=== PATIENT | male | born 1975 | race Caucasian/White ===

== ENCOUNTER 2018-05-23 09:00 | Emergency (ER) | payer SELFPAY ==
[2018-05-23 09:29] VITALS: BP 136/90
--- NOTE | 2018-05-23 09:37 | EDM.PDOC ---
ED HPI GENERAL MEDICAL PROBLEM - General Chief Complaint: Upper Extremity Injury/Pain Stated Complaint: BROKEN RT POINTER FINGER Time Seen by Provider: 05/23/18 09:32 Source of Information: Reports: Patient, RN Notes Reviewed History Limitations: Reports: No Limitations - History of Present Illness INITIAL COMMENTS - FREE TEXT/NARRATIVE: 42-year-old gentleman presents to the emergency department today with complaint of trauma to his right pointer finger, he accidentally crushed this between a metal stake in a 10 pound slight July 2 days ago, he would like to have it checked out he does have a laceration over the proximal phalange he and his started to heal by second intention he has had this wound wrapped Right 2-Index finger Pain Score (Numeric/FACES): 8 - Related Data Allergies Allergy/AdvReac Type Severity Reaction Status Date / Time No Known Allergies Allergy Verified 05/23/18 09:23 Home Meds: Home Meds NK [No Known Home Meds] 05/23/18 [History] Past Medical History Musculoskeletal History: Reports: Fracture - Past Surgical History GI Surgical History: Reports: Appendectomy, Hernia Repair/Other Social & Family History - Family History Cardiac: Reports: [place] Other GI Family History: Colon cancer Neurological: Reports: CVA Oncologic: Reports: Colon - Tobacco Use Smoking Status *Q: Current Every Day Smoker Years of Tobacco use: 16 Packs/Tins Daily: 0.5 - Caffeine Use Caffeine Use: Reports: Coffee - Alcohol Use Days Per Week of Alcohol Use: 2 Number of Drinks Per Day: 6 Total Drinks Per Week: 12 - Recreational Drug Use Recreational Drug Use: Yes Drug Use in Last 12 Months: Yes Recreational Drug Type: Reports: Marijuana/Hashish Recreational Drug Use Frequency: Socially Review of Systems - Review of Systems Review Of Systems: See Below Musculoskeletal: Reports: Hand Pain Skin: Reports: Wound Neurological: Reports: No Symptoms ED EXAM, GENERAL - Physical Exam Exam: See Below Free Text/Narrative:: Examination of the right hand I do appreciate approximately 2 cm laceration appears to be superficial of the started to heal by second intention over the dorsal aspect of the phalange he proximal digit #2 he has edema appreciated in digit #2 there is limited range of motion but he can move all joints and all digits secondary to edema and pain ED TRAUMA EXTREMITY PROCEDURES - Splinting Right 2nd Digit Splint Site: Second digit middle phalanx Pre-Procedure NV Status: Normal Post-Procedure NV Status: Normal Splint Material: Aluminum-Foam Splint Design: Other (Finger) Applied & Form Fitted By: Nurse Provider Post-Splint Application NV Check: NV Status Normal, Good Position Complications: No Course - Vital Signs Last Recorded V/S: Last Vital Signs Temp 98.4 F 05/23/18 09:28 Pulse 90 05/23/18 09:28 Resp 14 05/23/18 09:28 BP 136/90 05/23/18 09:28 Pulse Ox 100 05/23/18 09:28 - Orders/Labs/Meds Orders: Active Orders 24 hr Category Date Time Status Fingers Second Digit Rt F6 [CR] Stat Exams 05/23/18 09:34 Taken Departure - Departure Time of Disposition: 10:16 Disposition: Home, Self-Care 01 Condition: Good Clinical Impression: Open fracture of middle phalanx of right index finger Qualifiers: Encounter type: initial encounter Fracture alignment: displaced Qualified Code( s): S62.620B - Displaced fracture of middle phalanx of right index finger, initial encounter for open fracture - Discharge Information Referrals: PCP,None [Primary Care Provider] - Forms: ED Department Discharge Additional Instructions: Please follow-up with orthopedics tomorrow - My Orders Last 24 Hours: My Active Orders 05/23/18 09:34 Fingers Second Digit Rt F6 [CR] Stat - Assessment/Plan Last 24 Hours: My Active Orders 05/23/18 09:34 Fingers Second Digit Rt F6 [CR] Stat Plan: Assessment Acuity = acute Site and laterality = fracture right index middle phalange open Etiology = secondary trauma Manifestations = none Location of injury = Home Lab values = x-ray describes fracture above Plan Tetanus was updated today, given 2 g Ancef 1, prescription written for Keflex 500 mg by mouth 3 times a day 7 days, set up to see orthopedics tomorrow This note was dictated using [employer] voice recognition software please call with any questions on syntax or grammar.
[2018-05-23] MEDS ORDERED: ceFAZolin 1 GM Vial IM ONE (10:13)
[2018-05-23] MEDS ORDERED: Diphtheria,Pertussis(Acell),Tetanus Vaccine 0.5 ML SDV IM ONE (10:13)
--- NOTE | 2018-05-24 09:22 | CR ---
Fingers Second Digit Rt F6 CLINICAL HISTORY: Right index finger injury FINDINGS: There is an oblique minimally displaced fracture through the second middle phalanx IMPRESSION: Fracture second middle phalanx
== END 2018-05-23 11:00 | disposition home or self-care (01) ==
LOC: JP.ED 09:00
DX: S62.620B Displaced fracture of middle phalanx of right index finger, initial encounter for open fracture (principal); F17.210 Nicotine dependence, cigarettes, uncomplicated; W23.1XXA Caught, crushed, jammed, or pinched between stationary objects, initial encounter
CPT/HCPCS: 73140; 90471; 90715; 96372; 99284; J0690